=== PATIENT | female | born 1990 | race African-American/Black ===

== ENCOUNTER 2016-09-10 11:45 | Emergency (ER) | payer MEDICAID ==
[~2016-09-10] VITALS: Ht 162.6 cm; Wt 105.0 kg
[~2016-09-10 11:45] MED LIST: AMOX500T PO; CLOT1CRE4 VAGINAL; MACR100C PO; PRENTAB75
[2016-09-10 11:47] VITALS: BP 132/80; PULSE 78; RESP 15; TEMP 98.2; O2SAT 98
--- NOTE | 2016-09-10 12:35 | PD ---
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 This patient complains of vaginal bleeding. Duration 4 days. Symptoms severity is mild. No alleviating factors. Patient has had a tubal ligation. She is not having discharge or pelvic pain. PFSH Past Medical History Asthma: Yes ( A CHILD ) Diminished Hearing: No Immunizations Current: No ?: Not LMP: CURRENT : 6 Para: 4 Miscarriage: 2 Tubal Ligation: Yes Past Surgical History Abdominal Surgery: Yes (HERNIA REPAIR) Section: Yes (X3) Gynecologic Surgery: Yes (3 C-SECTIONS) Other Surgery: Yes (SKIN TUMOR REMOVED) Social History Alcohol Use: No Tobacco Use: No Substance Use: No Allergies-Medications (Allergen,Severity, Reaction): Coded Allergies: No Known Allergies (Verified , 08/13/16) Reported Meds & Prescriptions Reported Meds & Active Scripts Active Amoxil (Amoxicillin) 500 Mg Cap 2 Tab PO Q8 7 Days Clotrimazole 1 % Cre 1 % VAGINAL Q12HR 7 Days Macrobid (Nitrofurantoin Macrocrystals) 100 Mg Cap 100 Mg PO Q12HR 7 Days Reported [] Review of Systems General / Constitutional: No: Fever Eyes: No: Visual changes HENT: No: Headaches Cardiovascular: No: Chest Pain or Discomfort Respiratory: No: Shortness of Breath Gastrointestinal: No: Abdominal Pain Genitourinary: Positive: Vaginal Bleeding, No: Dysuria Musculoskeletal: No: Pain Skin: No Rash Neurologic: No: Weakness Psychiatric: No: Depression Endocrine: No: Polydipsia Hematologic/Lymphatic: No: Easy Bruising Physical Exam Narrative GENERAL: Well-nourished, well-developed patient in no apparent distress. SKIN: Focused skin assessment reveals no rash and nodules. Skin is Warm and dry. HEAD: Atraumatic. Normocephalic. EYES: Pupils equal and round. No scleral icterus. No injection or drainage. ENT: No nasal bleeding or discharge. Mucous membranes pink and moist. NECK: Trachea midline. No JVD. CARDIOVASCULAR: Regular rate and rhythm. No murmur appreciated. RESPIRATORY: No accessory muscle use. Clear to auscultation. Breath sounds equal bilaterally. GASTROINTESTINAL: Abdomen soft, non-tender, nondistended. Hepatic and splenic margins not palpable. MUSCULOSKELETAL: No obvious deformities. No clubbing. No cyanosis. No edema. NEUROLOGICAL: Awake and alert. No obvious cranial nerve deficits. Motor grossly within normal limits. Normal speech. PSYCHIATRIC: Appropriate mood and affect; insight and judgment normal. Data Data Last Documented VS Vital Signs Date Time Temp Pulse Resp B/P Pulse Ox O2 Delivery O2 Flow Rate FiO2 09/10/16 11:47 98.2 78 15 132/80 98 Orders Iv Access Insert/Monitor (09/10/16 12:28) Complete Blood Count With Diff (09/10/16 12:28) Beta Hcg (Quant/Titer) (09/10/16 12:28) Labs Laboratory Tests Test 09/10/16 12:30 White Blood Count 5.8 TH/MM3 Red Blood Count 4.53 MIL/MM3 Hemoglobin 9.3 GM/DL Hematocrit 29.9 % Mean Corpuscular Volume 66.0 FL Mean Corpuscular Hemoglobin 20.7 PG Mean Corpuscular Hemoglobin 31.3 % Concent Red Cell Distribution Width 20.7 % Platelet Count 382 TH/MM3 Mean Platelet Volume 8.8 FL Neutrophils (%) (Auto) 40.1 % Lymphocytes (%) (Auto) 51.1 % Monocytes (%) (Auto) 5.8 % Eosinophils (%) (Auto) 2.3 % Basophils (%) (Auto) 0.7 % Neutrophils # (Auto) 2.3 TH/MM3 Lymphocytes # (Auto) 2.9 TH/MM3 Monocytes # (Auto) 0.3 TH/MM3 Eosinophils # (Auto) 0.1 TH/MM3 Basophils # (Auto) 0.0 TH/MM3 CBC Comment AUTO DIFF Human Chorionic Gonadotropin, LESS THAN 1 Quant MIU/ML MDM Medical Decision Making Medical Screen Exam Complete: Yes Emergency Medical Condition: Yes Medical Record Reviewed: Yes Differential Diagnosis Dysfunction uterine bleeding, ectopic , fibroid Narrative Course I have reviewed the patient's electronic medical record. 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 Med/Other Pt SpecificInfo: Other Disposition: 01 DISCHARGE HOME Condition: Stable Torito Wood MD Sep 10, 2016 12:35
[2016-09-10 12:53] LABS: AUTOMATED NEUTROPHIL # 2.3 TH/MM3 (1.8-7.7); BASOPHIL % 0.7 % (0.0-2.0); EOSINOPHIL # 0.1 TH/MM3 (0-0.4); EOSINOPHIL % 2.3 % (0.0-4.0); HEMATOCRIT 29.9 % (35.0-46.0); LYMPH % 51.1 % (9.0-44.0); LYMPHOCYTE # 2.9 TH/MM3 (1.0-4.8); MEAN CORPUSCULAR HEMOGLOBIN 20.7 PG (27.0-34.0); MEAN CORPUSCULAR HGB CONC 31.3 % (32.0-36.0); MONO % 5.8 % (0.0-8.0); NEUT % 40.1 % (16.0-70.0); PLATELET COUNT 382 TH/MM3 (150-450); RED BLOOD COUNT 4.53 MIL/MM3 (4.00-5.30); RED CELL DISTRIBUTION WIDTH 20.7 % (11.6-17.2); WHITE BLOOD COUNT 5.8 TH/MM3 (4.0-11.0)
[2016-09-10 12:56] LABS: HEMO FLAGS AUTO DIFF
[2016-09-10 13:22] LABS: BETA HCG QUANT LESS THAN 1 MIU/ML (0-5)
[2016-09-10 13:37] LABS: SCAN/DIFF AUTO DIFF CONFIRMED
== END 2016-09-10 14:03 | disposition home or self-care (01) ==
LOC: NEPD 11:45
DX: N93.9 Abnormal uterine and vaginal bleeding, unspecified (principal)
CPT/HCPCS: 84702; 85025; 99284

== ENCOUNTER 2016-10-03 10:23 | Emergency (ER) | payer MEDICAID ==
[~2016-10-03] VITALS: Ht 162.6 cm; Wt 100.0 kg
[2016-10-03 10:25] VITALS: BP 114/59; PULSE 85; RESP 16; TEMP 98.7; O2SAT 99
--- NOTE | 2016-10-03 10:55 | PD ---
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 For past 2 days she is also experiencing dysuria. No history of fever. Patient has had unprotected sex. She does not think she could be since she has had tubal ligation. She has history of chlamydia in the past. She was successfully treated. [facility]LY [facility], [facility] Past Medical History Narrative Medical List of her past medical, surgical, social and family history was reviewed from the nursing note. Asthma: Yes ( A CHILD ) Diminished Hearing: No Immunizations Current: No ?: Not LMP: August : 6 Para: 4 Miscarriage: 2 Tubal Ligation: Yes Past Surgical History Abdominal Surgery: Yes (HERNIA REPAIR) Section: Yes (X3) Gynecologic Surgery: Yes (3 C-SECTIONS) Other Surgery: Yes (SKIN TUMOR REMOVED) Social History Alcohol Use: No Tobacco Use: No Substance Use: No Allergies-Medications (Allergen,Severity, Reaction): Coded Allergies: No Known Allergies (Verified , 08/13/16) Comments No known drug allergies. Reported Meds & Prescriptions Reported Meds & Active Scripts Active Flagyl (Metronidazole) 250 Mg Tab 250 Mg PO TID 7 Days Macrobid (Nitrofurantoin Monoh/Nitrofur Macro) 100 Mg Cap 100 Mg PO BID 7 Days Narrative Medication List of her home medications reviewed from the nursing note. Review of Systems Except as stated in HPI: all other systems reviewed are Neg Physical Exam Narrative GENERAL: Awake, alert, morbidly obese, no obvious distress SKIN: Focused skin assessment warm/dry. HEAD: Atraumatic. Normocephalic. EYES: Pupils equal and round. No scleral icterus. No injection or drainage. ENT: No nasal bleeding or discharge. Mucous membranes pink and moist. NECK: Trachea midline. No JVD. CARDIOVASCULAR: Regular rate and rhythm. No murmur appreciated. RESPIRATORY: No accessory muscle use. Clear to auscultation. Breath sounds equal bilaterally. GASTROINTESTINAL: Abdomen soft, non-tender, nondistended. Hepatic and splenic margins not palpable. : External inspection was within normal limits. Speculum exam showed copious amount of whitish to yellowish discharge that was foul smelling. Swabs were collected. No obvious CMT or adnexal tenderness. MUSCULOSKELETAL: No obvious deformities. No clubbing. No cyanosis. No edema. NEUROLOGICAL: Awake and alert. No obvious cranial nerve deficits. Motor grossly within normal limits. Normal speech. PSYCHIATRIC: Appropriate mood and affect; insight and judgment normal. Data Data Last Documented VS Vital Signs Date Time Temp Pulse Resp B/P Pulse Ox O2 Delivery O2 Flow Rate FiO2 10/03/16 10:25 98.7 85 16 114/59 99 Orders Gc And Chlamydia Pcr (10/03/16 11:11) Wet Prep Profile (10/03/16 11:11) Urinalysis - C+S If Indicated (10/03/16 11:11) Ed Urine Pregnancytest Poc (10/03/16 11:11) Urine Culture (10/03/16 11:15) Nitrofurantoin Monohyd Macrocr (Macrobid (10/03/16 12:15) Metronidazole (Flagyl) (10/03/16 13:15) Azithromycin Powd Pack (Zithromax Powd P (10/03/16 13:15) Ceftriaxone Inj (Rocephin Inj) (10/03/16 13:15) Labs Laboratory Tests Test 10/03/16 10/03/16 11:15 13:00 Urine Color YELLOW Urine Turbidity CLOUDY Urine pH 7.0 Urine Specific [place] 1.020 Urine Protein 30 mg/dL Urine Glucose (UA) NEG mg/dL Urine Ketones NEG mg/dL Urine Occult Blood MOD Urine Nitrite NEG Urine Bilirubin NEG Urine Urobilinogen LESS THAN 2.0 MG/DL Urine Leukocyte Esterase LARGE Urine RBC /hpf Urine WBC /hpf Urine WBC Clumps FEW Urine Squamous Epithelial 2 /hpf Cells Urine Bacteria MOD /hpf Microscopic Urinalysis Comment CULTURE INDICATED Clue Cells (Wet Prep) NONE SEEN Vaginal Trichomonas (Wet Prep) NONE SEEN Vaginal Yeast (Wet Prep) NONE SEEN Chlamydia trachomatis DNA NOT DETECTED (PCR) Neisseria gonorrhoeae DNA NOT DETECTED (PCR) [facility] Medical Decision Making Medical Screen Exam Complete: Yes Emergency Medical Condition: Yes Medical Record Reviewed: Yes Differential Diagnosis PID, cervicitis, UTI Narrative Course 1:09 PM UA was suggestive of UTI. Patient was given a dose of Macrobid here. Based on the pelvic exam I am treating her for cervicitis. Patient will be discharged home on Macrobid and Flagyl. Procedures EKG Prior to Arrival: No Diagnosis Primary Impression: Cervicitis Additional Impression: UTI (urinary tract infection) Qualified Code: N39.0 - Urinary tract infection without hematuria, site unspecified Referrals: Primary Care Physician 3 days Additional Instructions: Please return to the ER if the condition worsens or any other new concerns. Otherwise follow-up with your primary care in couple days. She finished the course of the antibiotic that has been prescribed to you. Do not engage in unprotected sex for at least next 3 weeks. If you test comes back positive your partner(s) need to be treated as well. Scripts Metronidazole (Flagyl)250 Mg [id number] Mg PO TID 7 Days Ref 0 Prov:Kieran Kearns MD 10/03/16 Nitrofurantoin Monohydrate Macrocrystals (Macrobid)100 Mg [id number] Mg PO BID 7 Days Ref 0 Prov:Kieran Kearns MD 10/03/16 Disposition: 01 DISCHARGE HOME Condition: Stable Kieran Kearns MD October 03, 2016 10:55
[2016-10-03 11:37] LABS: BACTERIA, URINE MOD /hpf; BLOOD, URINE MOD (NEG); COMMENT (UR) CULTURE INDICATED; CULTURE IF INDICATED CULTURE INDICATED; GLUCOSE,URINE NEG (NEG); KETONE, URINE NEG (NEG); NITRITE,URINE NEG (NEG); SQUAMOUS EPITHELIAL CELL URINE 2 /hpf (0-5); URINE COLOR YELLOW (YELLW/STRAW)
[2016-10-03] MEDS ORDERED: NITROFURANTOIN MONOHYD MACROCR 100 MG CAP PO ONE (12:15)
[2016-10-03] MEDS ORDERED: METR250 PO (13:11)
[2016-10-03] MEDS ORDERED: MACR100C2 PO (13:11)
[2016-10-03] MEDS ORDERED: AZITHROMYCIN PWD FOR SUSP 1 GM PACKET PO ONE (13:15)
[2016-10-03] MEDS ORDERED: cefTRIAXone 250 MG VIAL IM ONE (13:15)
[2016-10-03] MEDS ORDERED: metroNIDAZOLE 500 MG TAB PO ONE (13:15)
[2016-10-03 15:57] LABS: CHLAMYDIA PCR NOT DETECTED (NOT DETECT); NEISSERIA PCR NOT DETECTED (NOT DETECT)
== END 2016-10-03 14:02 | disposition home or self-care (01) ==
LOC: NEPD 10:23
DX: N72 Inflammatory disease of cervix uteri (principal); N39.0 Urinary tract infection, site not specified; B96.20 Unspecified Escherichia coli [E. coli] as the cause of diseases classified elsewhere
CPT/HCPCS: 81001; 84703; 87077; 87086; 87186; 87210; 87491; 87591; 96372; 99283; J0696

== ENCOUNTER 2016-12-17 22:44 | Emergency (ER) | payer MEDICAID ==
[~2016-12-17 22:44] MED LIST changes: -AMOX500T PO; -CLOT1CRE4 VAGINAL; -MACR100C PO; +MACR100C2 PO; +METR250 PO; -PRENTAB75
[2016-12-17 22:45] VITALS: BP 133/76; PULSE 109; RESP 16; TEMP 98.8; O2SAT 98
[2016-12-17] MEDS ORDERED: predniSONE 20 MG TAB PO ONE (23:15)
[2016-12-17] MEDS ORDERED: AMOXICILLIN (TRIHYDRATE) 500 MG CAP PO ONE (23:15)
[2016-12-17] MEDS ORDERED: AMOX500T PO (23:16)
[2016-12-17] MEDS ORDERED: PRED-503 PO (23:16)
--- NOTE | 2016-12-17 23:19 | PD ---
HPI Chief Complaint: ENT Complaint Time Seen by Provider: 23:17 Travel History International Travel<30 days: No Contact w/Intl Traveler<30days: No Traveled to known affect area: No History of Present Illness HPI 26-year-old black female presents immersed department with complaints of sore throat 3 days. She states that she's had difficulty swallowing. Pain is moderate. No alleviating factors. She does also report some congestion, cough and slight clear sputum production. No shortness of breath or wheezing. No glossal edema. She states that she is able to swallow her saliva. She denies any nausea vomiting. No abdominal pain or diarrhea. No dysuria or frequency. PFSH Past Medical History Asthma: Yes ( A CHILD ) Diminished Hearing: No Immunizations Current: No ?: Not LMP: "END OF NOVEMBER" : 6 Para: 4 Miscarriage: 2 Tubal Ligation: Yes Past Surgical History Abdominal Surgery: Yes (HERNIA REPAIR) Section: Yes Gynecologic Surgery: Yes (4 C-SECTIONS) Other Surgery: Yes (SKIN TUMOR REMOVED) Social History Alcohol Use: No Tobacco Use: No Substance Use: No Allergies-Medications (Allergen,Severity, Reaction): Coded Allergies: No Known Allergies (Verified , 12/17/16) Reported Meds & Prescriptions Reported Meds & Active Scripts Active Deltasone (Prednisone) 20 Mg Tab 20 Mg PO BID Amoxicillin 500 Mg Tab 1,000 Mg PO BID Review of Systems Except as stated in HPI: all other systems reviewed are Neg Physical Exam Narrative GENERAL: Well-developed, well-nourished in no acute distress. Nontoxic appearing. HEAD: Normocephalic, atraumatic. EYES: Pupils equal round and reactive. Extraocular motions intact. No scleral icterus. No injection or drainage. ENT: TMs clear without erythema. The external auditory canals clear. Nose: clear . Posterior pharynx is erythematous and moist. Positive large tonsillar edema but no exudate. The soft palate is mildly edematous along with the basis of the tonsil papillae but I do not see any obvious abscess at this point. Uvula midline. Airway patent. NECK: Trachea midline.Supple, nontender, moves head freely. No central bony tenderness or spasm. Positive tonsillar and cervical adenopathy CARDIOVASCULAR: Regular rate and rhythm without murmurs, gallops, or rubs. RESPIRATORY: Clear to auscultation. Breath sounds equal bilaterally. No wheezes , rales, or rhonchi. GASTROINTESTINAL: Abdomen soft, non-tender, nondistended. No hepato-splenomegaly , or palpable masses. No guarding. EXTREMITIES: No clubbing, cyanosis, or edema. No joint tenderness, effusion, or edema noted. BACK: Nontender without deformity or crepitance. No flank tenderness. Data Data Last Documented VS Vital Signs Date Time Temp Pulse Resp B/P Pulse Ox O2 Delivery O2 Flow Rate FiO2 12/17/16 22:45 98.8 109 16 133/76 98 Room Air Orders Amoxicillin (Trimox) (12/17/16 23:15) Prednisone (Deltasone) (12/17/16 23:15) MDM Medical Decision Making Medical Screen Exam Complete: Yes Emergency Medical Condition: Yes Medical Record Reviewed: Yes Differential Diagnosis MDM: High Differential diagnoses: Strep throat, viral pharyngitis, mono, peritonsillar abscess, retropharyngeal abscess, Cr's angina Narrative Course This is acute pharyngitis. Patient's given Amoxil 1 g and prednisone 60 mg by mouth. Diagnosis Primary Impression: Acute pharyngitis Qualified Code: J02.9 - Acute pharyngitis, unspecified etiology Patient Instructions: General Instructions Additional Instructions: Rest. Force fluids. Saltwater gargles. Tylenol and Advil. Chloraseptic [place] Cepastat lozenge. Amoxicillin and prednisone. Follow-up with a primary care doctor in one week. Return to the ER if any problems. Med/Other Pt SpecificInfo: Prescription(s) given Scripts Prednisone (Deltasone)20 Mg Tab20 Mg PO BID #10 TAB Prov:Prosper Bales MD 12/17/16 Amoxicillin 500 Mg Tab1,000 Mg PO BID #40 TAB Prov:Prosper Bales MD 12/17/16 Disposition: 01 DISCHARGE HOME Condition: Stable Jeremy Greene Dec 17, 2016 23:19
== END 2016-12-17 23:40 | disposition home or self-care (01) ==
LOC: NEPK 22:44
DX: J02.9 Acute pharyngitis, unspecified (principal)
CPT/HCPCS: 99284; J7512

== ENCOUNTER 2017-06-22 18:23 | Emergency (ER) | payer MEDICAID ==
[~2017-06-22 18:23] MED LIST changes: +AMOX500T PO; -MACR100C2 PO; -METR250 PO; +PRED-503 PO
[2017-06-22 18:25] VITALS: BP 146/74; PULSE 86; RESP 17; TEMP 98.4; O2SAT 99
[2017-06-22] MEDS ORDERED: IBUP1TAB7 PO (21:34)
[2017-06-22] MEDS ORDERED: AMOX875T PO (21:34)
--- NOTE | 2017-06-22 21:35 | PD ---
HPI Chief Complaint: Cold / Flu Symptoms Time Seen by Provider: 21:28 Travel History International Travel<30 days: No Contact w/Intl Traveler<30days: No Traveled to known affect area: No History of Present Illness HPI Patient is a 27-year-old female presenting to emergency for evaluation of sore throat, cough, headache. Patient states her symptoms started 4 days ago, onset was gradual. Symptoms are not exacerbated by anything. Symptoms are not alleviated by anything however patient has not taken any medications over-the- counter to alleviate her symptoms. She denies any fevers, chills, bodyaches, abdominal pain, nausea, vomiting, chest pain or shortness of breath. PFSH Past Medical History Asthma: Yes ( A CHILD ) Diminished Hearing: No Immunizations Current: No ?: Not : 6 Para: 4 Miscarriage: 2 Tubal Ligation: Yes Past Surgical History Abdominal Surgery: Yes (HERNIA REPAIR) Section: Yes Gynecologic Surgery: Yes (4 C-SECTIONS) Other Surgery: Yes (SKIN TUMOR REMOVED) Social History Alcohol Use: No Tobacco Use: No Substance Use: No Allergies-Medications (Allergen,Severity, Reaction): Coded Allergies: No Known Allergies (Verified Adverse Reaction, Unknown, 06/22/17) Reported Meds & Prescriptions Reported Meds & Active Scripts Active Deltasone (Prednisone) 20 Mg Tab 20 Mg PO BID Amoxicillin 500 Mg Tab 1,000 Mg PO BID Review of Systems Except as stated in HPI: all other systems reviewed are Neg HENT: Positive: Headaches, Sore Throat, Congestion Respiratory: Positive: Cough Physical Exam Narrative GENERAL: Well-developed, well-nourished, alert female. Resting comfortably in no acute distress. SKIN: Warm and dry. HEAD: Atraumatic. Normocephalic. EYES: Pupils equal and round. No scleral icterus. No injection or drainage. ENT: No nasal bleeding or discharge. Mucous membranes pink and moist. 1+ bilateral tonsillar hypertrophy, mildly erythematous, no exudate noted. Uvula is midline and airway is patent. NECK: Trachea midline. No JVD. CARDIOVASCULAR: Regular rate and rhythm. RESPIRATORY: No accessory muscle use. Clear to auscultation. Breath sounds equal bilaterally. GASTROINTESTINAL: Abdomen soft, non-tender, nondistended. Hepatic and splenic margins not palpable. MUSCULOSKELETAL: Extremities without clubbing, cyanosis, or edema. No obvious deformities. NEUROLOGICAL: Awake and alert. No obvious cranial nerve deficits. Motor grossly within normal limits. Five out of 5 muscle strength in the arms and legs. Normal speech. PSYCHIATRIC: Appropriate mood and affect; insight and judgment normal. Data Data Last Documented VS Vital Signs Date Time Temp Pulse Resp B/P (MAP) Pulse Ox O2 Delivery O2 Flow Rate FiO2 06/22/17 18:25 98.4 86 17 146/74 (98) 99 Orders Orders Group A Rapid Strep Screen (06/22/17 19:05) Influenzae A/B Antigen (06/22/17 19:05) Strep Culture (Group A) (06/22/17 20:20) MDM Medical Decision Making Medical Screen Exam Complete: Yes Emergency Medical Condition: Yes Interpretation(s) Vital Signs Date Time Temp Pulse Resp B/P (MAP) Pulse Ox O2 Delivery O2 Flow Rate FiO2 06/22/17 18:25 98.4 86 17 146/74 (98) 99 Differential Diagnosis Strep pharyngitis versus influenza versus viral syndrome versus URI versus other Narrative Course Patient is a 27-year-old female presenting with 4 days of cold of flulike symptoms. Physical examination revealed bilateral tonsillar hypertrophy, patient's vital signs are stable and she is afebrile. Patient is taken any over -the-counter medications today. Influenza and strep are negative. Patient was encouraged to continue symptomatic management as her symptoms are likely viral in nature. She will be provided with a backup prescription for an antibiotic however she was encouraged to wait another 2-3 days before taking it and continued again symptom management. Patient verbalized understanding of these instructions. Patient stable for discharge. Diagnosis Primary Impression: Viral syndrome Additional Impression: Acute pharyngitis Qualified Codes: J02.9 - Acute pharyngitis, unspecified Referrals: Primary Care Physician Patient Instructions: General Instructions, Viral Syndrome (DC) Additional Instructions: Follow-up with her primary doctor Continue symptomatic management as discussed If you begin antibiotics, complete full course even if you begin to feel better Return to emergency department for any new or worsening symptoms Med/Other Pt SpecificInfo: Prescription(s) given Scripts Amoxicillin (Amoxicillin) 875 Mg Tab 875 MG PO BID for Infection, #20 TAB 0 Refills Prov: Ariana Haji 06/22/17 Ibuprofen (Ibuprofen) 800 Mg Tab 800 MG PO Q6HR Y for PAIN, #40 TAB 0 Refills Prov: Ariana Haji 06/22/17 Disposition: 01 DISCHARGE HOME Condition: Stable Ariana Haji Jun 22, 2017 21:35
== END 2017-06-22 21:40 | disposition home or self-care (01) ==
LOC: NEPK 18:23
DX: B34.9 Viral infection, unspecified (principal); J02.9 Acute pharyngitis, unspecified
CPT/HCPCS: 87081; 87804; 87880; 99283

== ENCOUNTER 2017-09-09 18:11 | Emergency (ER) | payer MEDICAID ==
[~2017-09-09 18:11] MED LIST changes: +AMOX875T PO; +IBUP1TAB7 PO
[2017-09-09 18:49] VITALS: BP 136/69; PULSE 96; RESP 16; TEMP 98.3; O2SAT 100
[2017-09-09 19:32] LABS: AMORPHOUS SEDIMENT, URINE RARE; BACTERIA, URINE RARE /hpf; BILIRUBIN, URINE NEG (NEG); BLOOD, URINE MOD (NEG); GLUCOSE,URINE NEG (NEG); KETONE, URINE NEG (NEG); MUCUS URINE FEW /lpf (OCC); NITRITE,URINE NEG (NEG); SQUAMOUS EPITHELIAL CELL URINE 2 /hpf (0-5); URINE COLOR YELLOW (YELLW/STRAW); URINE LEUKOCYTE ESTERASE LARGE (NEG)
[2017-09-09] MEDS ORDERED: CIPR500T2 PO (22:27)
--- NOTE | 2017-09-09 22:29 | PD ---
HPI Chief Complaint: Complaint Time Seen by Provider: 21:49 Travel History International Travel<30 days: No Contact w/Intl Traveler<30days: No Traveled to known affect area: No History of Present Illness HPI This patient complains of dysuria. Duration 2 days. Severity is moderate. No fever. Some urinary frequency. PFSH Past Medical History Asthma: Yes ( A CHILD ) Diminished Hearing: No Immunizations Current: No ?: Not : 6 Para: 4 Miscarriage: 2 Tubal Ligation: Yes Past Surgical History Abdominal Surgery: Yes (HERNIA REPAIR) Section: Yes Gynecologic Surgery: Yes (4 C-SECTIONS) Other Surgery: Yes (SKIN TUMOR REMOVED) Social History Alcohol Use: No Tobacco Use: No Substance Use: No Allergies-Medications (Allergen,Severity, Reaction): Coded Allergies: No Known Allergies (Verified Adverse Reaction, Unknown, 06/22/17) Reported Meds & Prescriptions Reported Meds & Active Scripts Active Ciprofloxacin (Ciprofloxacin HCl) 500 Mg Tab 500 Mg PO BID Amoxicillin 875 Mg Tab 875 Mg PO BID Ibuprofen 800 Mg Tab 800 Mg PO Q6HR PRN Deltasone (Prednisone) 20 Mg Tab 20 Mg PO BID Amoxicillin 500 Mg Tab 1,000 Mg PO BID Review of Systems General / Constitutional: No: Fever HENT: No: Headaches Cardiovascular: No: Chest Pain or Discomfort Respiratory: No: Cough Physical Exam Narrative GASTROINTESTINAL: Abdomen soft, non-tender, nondistended. Positive bowel sounds. No hepato-splenomegaly, or palpable masses. No guarding. SKIN: Focused skin assessment reveals no rash or ulcers. Skin is warm and dry. Palpation shows no induration or nodules. Psych: Normal mood and affect. Normal insight and judgment. Data Data Last Documented VS Vital Signs Date Time Temp Pulse Resp B/P (MAP) Pulse Ox O2 Delivery O2 Flow Rate FiO2 09/09/17 18:49 98.3 96 16 136/69 (91) 100 Orders Orders Urinalysis - C+S If Indicated (09/09/17 18:51) Ed Urine Pregnancytest Poc (09/09/17 18:51) Urine Culture (09/09/17 18:55) Labs Laboratory Tests Test 09/09/17 18:55 Urine Color YELLOW Urine Turbidity HAZY Urine pH 6.0 Urine Specific [place] 1.023 Urine Protein TRACE mg/dL Urine Glucose (UA) NEG mg/dL Urine Ketones NEG mg/dL Urine Occult Blood MOD Urine Nitrite NEG Urine Bilirubin NEG Urine Urobilinogen LESS THAN 2.0 MG/DL Urine Leukocyte Esterase LARGE Urine RBC 50 /hpf Urine WBC /hpf Urine Squamous Epithelial Cells 2 /hpf Urine Amorphous Sediment RARE Urine Bacteria RARE /hpf Urine Mucus FEW /lpf Microscopic Urinalysis Comment CULTURE INDICATED MDM Medical Decision Making Medical Screen Exam Complete: Yes Emergency Medical Condition: Yes Medical Record Reviewed: Yes Differential Diagnosis Cystitis, pyelonephritis, UTI Narrative Course I have reviewed the patient's electronic medical record. Urinalysis consistent with infection. Cipro prescribed Diagnosis Primary Impression: UTI (urinary tract infection) Qualified Codes: N30.00 - Acute cystitis without hematuria Additional Instructions: The patient was advised to follow up with their physician and return if they worsen. Med/Other Pt SpecificInfo: Prescription(s) given Scripts Ciprofloxacin (Ciprofloxacin) 500 Mg Tab 500 MG PO BID for Infection, #6 TAB 0 Refills Prov: Torito Wood MD 09/09/17 Disposition: DISCHARGE HOME Condition: Stable Torito Wood MD Sep 09, 2017 22:29
== END 2017-09-09 22:34 | disposition home or self-care (01) ==
LOC: NEPD 18:11
DX: N30.00 Acute cystitis without hematuria (principal); B96.20 Unspecified Escherichia coli [E. coli] as the cause of diseases classified elsewhere; J45.909 Unspecified asthma, uncomplicated
CPT/HCPCS: 81001; 84703; 87077; 87086; 87186; 99283